=== PATIENT | male | born 1975 | race Caucasian/White ===

== ENCOUNTER 2019-04-06 16:52 | Emergency (ER) | payer OTHER, BC ==
[~2019-04-06] VITALS: Ht 185.4 cm; Wt 83.9 kg
[2019-04-06] MEDS ORDERED: PHENYTOIN SODI100 MG PO (17:32)
== END 2019-04-06 17:37 | disposition home or self-care (01) ==
LOC: ED 16:52
DX: M25.511 Pain in right shoulder (principal)

== ENCOUNTER 2023-03-21 08:00 | Day surgery (SDC) | payer OTHER ==
[2023-03-17 10:39] VITALS: BP 130/84
[~2023-03-21] VITALS: Ht 185.4 cm; Wt 81.8 kg
[~2023-03-21 08:00] MED LIST: PHENYTOIN SODI100 MG PO
[2023-03-21 08:07] VITALS: BP 135/86
--- NOTE | 2023-03-21 10:30 | NUR ---
03/21/23 1030 Rosita Renteria 1002- PT ARRIVES TO UNIT VIA STRETCHER FROM OR. PT IS NONREACTIVE TO TACTILE STIMULI AT THIS TIME. PT REQUIRES JAW THRUST FOR AIRWAY SUPPORT, 6L OF O2 VIA MASK IN PLACE AT THIS TIME. PT RESPIRATIONS ARE EVEN AND UNLABORED, NO SIGNS OF DISTRESS. TERRENCE DASILVA AT BEDSIDE FOR REPORT. 1010- JAW THRUST REMOVED AND AIRWAY STABLE AT THIS TIME, O2 >90% VIA PULSE OX W/6L OF O2 VIA MASK AT THIS TIME. RESPIRATIONS EVEN AND UNLABORED, NO SIGNS OF DISTRESS. 1015- PT RESPONSIVE TO VERBAL STIMULI AT THIS TIME. PT EDUCATED ABOUT NOT TOUCHING SURGICAL SITE, PT STATES VERBAL UNDERSTANDING. 1016- PT TITRATED TO RA, O2 >90% VIA PULSE OX AT THIS TIME. RESPIRATIONS EVEN AND UNLABORED. PT ASKING QUESTIONS APPROPRIATELY AND STATES NO PAIN OR NAUSEA AT THIS TIME.
[2023-03-21 10:40] VITALS: BP 146/83
[2023-03-21 11:32] VITALS: BP 140/86
--- NOTE | 2023-03-21 11:45 | NUR ---
LE 1125: PT IS HELPED UP OOB TO USE THE BATHROOM. HE IS ABLE TO VOID 500MLS OF URINE. LE 1137: PT AND ARE GIVEN WRITTEN AND VERBAL DC INSTRUCTIONS. THEY BOTH VERBALIZE UNDERSTANDING. QUESTIONS ARE ASKED AND ANSWERED. PT IS TAKEN TO PERSONAL VEHICLE VIA WC, HE IS ABLE TO TRANSFER HIMSELF WITHOUT ISSUES.
--- NOTE | 2023-03-25 07:41 | OR ---
[facility] [address], [place] [address] Signed DATE OF OPERATION: 03/21/2023 SURGEON: Ginger Wagner MD PREOPERATIVE DIAGNOSES: Right mid parietal scalp cyst (2.5 x 2.0 cm). POSTOPERATIVE DIAGNOSIS: Right mid parietal scalp cyst (2.5 x 2.0 cm). PROCEDURE: Excision of Pilar cyst. ESTIMATED BLOOD LOSS: None. 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 He said it has increased in size overtime. It now measures 2.5 x 2.0 cm in the office. 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 It is now to the point it is rubbing on the band of his hat. He tells me to his knowledge it has never been infected. He has finally decided to have it removed. He went to his primary care provider. He was referred to me as a local general surgeon to have it removed. I explained to Tarun the nature of the Pilar cyst. They have a propensity to recur if the entire cyst wall is not removed. In addition, the scalp was extremely well vascularized and bleeds significantly. Consequently, we would like to do this in the operating room with our needle tip cautery with the help of our OR nurse under good lighting with very small instruments and very delicate deliberate dissection. He understands the nature of the surgery. He will be going home afterwards. There is risk including, but not limited to bleeding, infection, scarring, change in contour of the skin as well as recurrent cyst in the same or other locations. He had expressed understanding and wished to proceed. PROCEDURE NOTE: I met with Tarun and his in our preop area. We all agreed on the lesion and marked it appropriately. After this, Tarun was taken into the operating room and placed in the supine position under general LMA anesthesia. He was given preoperative antibiotics along with subcutaneous heparin. SCDs were utilized. He was then put in the reverse Trendelenburg position. His head was gently rotated to the left. The area was prepped and draped in the usual sterile fashion. An oblique incision was made over Electronically Signed By: GINGER WAGNER MD 03/25/23 0741 PATIENT NAME: TARUN CANTU II OPERATIVE REPORT DATE OF : 71 REPORT #: [id number] PHYSICIAN: GINGER WAGNER MD PCP: ERMIAS ORTEGA MD REPORT IS CONFIDENTIAL AND NOT TO BE RELEASED WITHOUT AUTHORIZATION [facility] [address], [place] [address] Signed the lesion to follow the direction of his hair. We had placed a circumferential field block with local anesthetic as well as up over the area of the incision. We went very carefully and slowly around the lesion with our needle-tip cautery and with our hemostats. He did have an area anterior that had protruded out and it took a little extra dissection to remove that cyst wall as well. Thus, the entire lesion was removed en bloc. After this, some additional local was injected into the base of the area. The wound was irrigated and suctioned out until clear. We closed the dermis with interrupted 5-0 subcuticular Monocryl sutures. The skin edges were reapproximated with running 5-0 fast absorbing plain gut suture. No dressing was applied. After this, he was awakened from his anesthesia, extubated in the OR, and taken to recovery room in stable condition. Gniger Wagner MD ALB/MODL /[id number] cc: MD Ginger Davis MD Copies: GINGER WAGNER MD ~ Electronically Signed By: GINGER WAGNER MD 03/25/23 0741 PATIENT NAME: TARUN CANTU II OPERATIVE REPORT DATE OF : 71 REPORT #: [id number] PHYSICIAN: GINGER WAGNER MD PCP: ERMIAS ORTEGA MD REPORT IS CONFIDENTIAL AND NOT TO BE RELEASED WITHOUT AUTHORIZATION
== END 2023-03-21 11:40 | disposition home or self-care (01) ==
LOC: DS 08:00
PROVIDERS: ATTEND Colon & Rectal Surgery
PROC: 0HB0XZZ Excision of Scalp Skin, External Approach (ICD-10-PCS; principal; 2023-03-21 09:00)
DX: L72.11 Pilar cyst (principal); G40.909 Epilepsy, unspecified, not intractable, without status epilepticus; R03.0 Elevated blood-pressure reading, without diagnosis of hypertension; Z72.0 Tobacco use
CPT/HCPCS: 00300; J0690; J1644; J2001; J2250; J2704; J3490; J7121